=== PATIENT | female | born 1985 | race Caucasian/White ===

== ENCOUNTER 2017-09-07 18:58 | Emergency (ER) | payer OTHER ==
[~2017-09-07] VITALS: Ht 175.3 cm; Wt 68.0 kg
[~2017-09-07 18:58] MED LIST: ORTHO TRI-CYCL1 EAC1
[2017-09-07 19:44] LABS: ABSOLUTE EOSINOPHILS 0.1 thou/uL (0.0-0.7); ABSOLUTE LYMPHOCYTES 2.5 thou/uL (0.8-5.3); ABSOLUTE MONOCYTES 0.5 thou/uL (0.0-1.2); ABSOLUTE NEUTROPHILS 3.8 thou/uL (1.6-8.1); BASOPHILS 0.7 %; EOSINOPHILS 1.5 %; HEMATOCRIT 40.5 % (37.0-47.0); HEMOGLOBIN 13.4 gm/dL (12.0-15.0); LYMPHOCYTES 36.7 %; MCH 29.9 pg (26.0-34.0); MCHC 33.2 g/dL (28.0-37.0); MCV 90.1 fL (80.0-100.0); MPV 8.2 fl. (7.2-11.1); NUCLEATED RBCS 0 /100WBC; PLATELET COUNT* 241 thou/uL (150-400); POLYS 54.1 %; RBC 4.49 mil/uL (4.20-5.00); RDW-CV 13.3 % (10.5-14.5)
[2017-09-07 19:57] LABS: CALCIUM 9.1 mg/dL (8.5-10.1); POTASSIUM 3.6 mmol/L (3.5-5.1)
[2017-09-07 20:01] LABS: ALBUMIN 3.7 g/dL (3.4-5.0); TOTAL BILIRUBIN 0.4 mg/dL (<0.1-1.0); TOTAL PROTEIN 6.9 g/dL (6.4-8.2)
[2017-09-07] MEDS ORDERED: AUGMENTIN 875-1 EACH PO (20:34)
[2017-09-07 21:00] VITALS: BP 113/74
== END 2017-09-07 21:01 | disposition home or self-care (01) ==
LOC: M.ERS 18:58
PROVIDERS: Nurse Practitioner Family
DX: J01.90 Acute sinusitis, unspecified (principal); R51 Headache; Z90.89 Acquired absence of other organs